=== PATIENT | female | born 1940 | race Caucasian/White ===

== ENCOUNTER 2018-04-13 12:30 | Outpatient (CLI) | payer MEDICARE, OTHER ==
[~2018-04-13 12:30] MED LIST: Gadobenate Dimeglumine 529 MG/1 ML (20ML VIAL) ONE
--- NOTE | 2018-04-13 15:30 | MRI ---
MRI OF THE PELVIS WITH AND WITHOUT IV CONTRAST: Date: 04/13/18 INDICATION: 77-year-old female with history of right-sided pelvic pain, diverticulitis, and ovarian abscess. The patient reportedly has been having right-sided pelvic pain on and off for 2 weeks. No history of prio r surgery or trauma. CONTRAST: 9 mL MultiHance. TECHNIQUE: Multiplanar, multisequence MR images were obtained of the pelvis with and without IV contrast. COMPARISON: CT abdomen and pelvis performed at [facility] on 12/12/16. FINDINGS: The uterus and adnexa have a normal appearance for age. No focal lesion is evidence within the adnexa . The visualized cervix is unremarkable. The bladder is normal appearing. There are a few scattered diverticula involving the visualized colon . No drainable fluid collection is evident. No pathologically enlarged lymph node is present. No definite acute osseous abnormality is demonstrated. No abnormal region of enhancement is demonstra anabela. IMPRESSION: 1. No acute abnormality seen. 2. Colonic diverticulosis. POS: [facility]
== END 2018-04-13 12:31 | disposition home or self-care (01) ==
LOC: BICMRI 12:30
PROVIDERS: ATTEND Family Medicine
DX: R10.2 Pelvic and perineal pain (principal); K57.30 Diverticulosis of large intestine without perforation or abscess without bleeding
CPT/HCPCS: 72197; 82565; A9579

== ENCOUNTER 2019-07-12 16:47 | Observation (INO) | payer MEDICARE ==
[~2019-07-12 16:47] MED LIST changes: -Gadobenate Dimeglumine 529 MG/1 ML (20ML VIAL) ONE; +Iopamidol 370 76% 100 ML VIAL ONE
[2019-07-12 17:24] LABS: #Eosinphils 0.1 thou/uL (0.0-0.7); #Lymphocytes 2.2 thou/uL (1.20-3.40); #Neutrophils 7.8 thou/uL (1.40-6.50); %Basophils 0.1 % (0.0-1.0); %Eosinophils 1.2 % (0.0-10.0); %Lymphocytes 19.3 % (21.0-51.0); %Monocytes 9.3 % (0.0-10.0); %Neutrophils 70.1 % (42.0-75.0); Hemoglobin 14.8 g/dL (12.0-16.0); Mean Corpuscular HGB CONC 33.8 g/dL (32.0-36.0); Mean Corpuscular Hemoglobin 29.5 pg (27.0-31.0); Mean Corpuscular Volume 87.2 fL (78.0-98.0); Mean Platelet Volume 7.7 fL (7.4-10.4); Platelet Count 313 thou/uL (130-400); RBC Distribution Width 12.7 % (11.5-14.5); White Blood Cell (WBC) Count 11.2 thou/uL (4.8-10.8)
[2019-07-12 17:50] LABS: ALT (SGPT) 8 U/L (8-55); AST (SGOT) 18 U/L (5-34); Albumin 3.8 g/dL (3.4-4.8); Alkaline Phosphatase 60 U/L (40-110); Anion Gap 15 mmol/L (10-20); BUN (Urea Nitrogen) 12 mg/dL (9.8-20.1); Bilirubin, Total 1.7 mg/dL (0.2-1.2); Calc. Creatinine Clearance 0 mL/min (70-130); Calcium 9.3 mg/dL (7.8-10.44); Carbon Dioxide 24 mmol/L (23-31); Chloride 104 mmol/L (98-107); Estimated GFR-MDRD 68; Globulin 3.7 g/dL (2.4-3.5); Glucose 109 mg/dL (83-110); Lipase 14 U/L (8-78); Potassium 4.7 mmol/L (3.5-5.1); Protein, Total 7.5 g/dL (6.0-8.3); Sodium 138 mmol/L (136-145)
--- NOTE | 2019-07-12 17:56 | RAD ---
PORTABLE CHEST: 07/12/19 PROVIDED CLINICAL HISTORY: Chest pain. Cardiac and mediastinal silhouette is within normal limits. No focal consolidation, pleural fluid or pneumothorax apparent. Vascular calcifications involves the aortic arch. IMPRESSION: No evidence for an acute cardiopulmonary process. POS: [facility]
--- NOTE | 2019-07-12 18:30 | CT ---
CT arteriogram chest with IV contrast and 3-D imaging HISTORY: Chest pain. Dyspnea. FINDINGS: Partially occlusive cylindrical filling defects are present within pulmonary arteries to th e left lower lobe posterior and lateral basilar segments and the right lower lobe medial and posterior basilar segments. Associated parenchymal atelectasis, left greater than right. Small amount of left pleural fluid. Good flow into the thoracic aorta with normal branching of the great vessels. Small amount of arteria l calcification. No evidence of pneumothorax. IMPRESSION : Bilateral lower lobe pulmonary emboli. Overall mild clot burden. Small left pleural effusion. Findings were called to Dr. Louie in the emergency department at 1823 hours. Code CR.
[2019-07-12] MEDS ORDERED: Enoxaparin Sodium 100 MG/ML SYRINGE ONE (19:17)
[2019-07-12 20:51] LABS: Troponin I Less than 0.010 ng/mL (< 0.028)
[2019-07-12] MEDS ORDERED: Acetaminophen 325 MG TAB PO PRN (21:26)
--- NOTE | 2019-07-12 21:40 | PDOC.HHP ---
Hospitalist HPI - History of Present Illness Chest pain, SOB History of Present Illness: PCP: June The patient is a 78/F with PMH significant for HTN that presents to ER for above complaint. The patient reports developing chest pain yesterday morning, located left chest, under breast, describes as intermittent aching, states "I thought I strained a muscle". Then this afternoon, the pain intensified, became constant, with associated sob, exacerbated with exertion and deep breathing. Denies heart palpitations and light headedness. Denies cough or wheezing. Reports some mild swelling to lower extremities. Denies history of DVT/PE, no recent surgeries, no hormone therapy, no history of Cancer or recent weight loss. For this reason, she had her ex drive her to the ER. ED Course: EKG ST, no ST elevations Trop negative CXR negative CTA chest + bialteral lower lobe emboli Given LMWH 1mg/kg Hospitalist ROS - Review of Systems Constitutional: denies: fever, chills, sweats, weakness, malaise, other Eyes: denies: pain, vision change, conjunctivae inflammation, eyelid inflammation, redness, other ENT: denies: ear pain, ear discharge, nose pain, nose discharge, nose congestion , mouth pain, mouth swelling, throat pain, throat swelling, other Respiratory: reports: shortness of breath, SOB with excertion, pleuritic pain. denies: cough, dry, hemoptysis, sputum, wheezing Cardiovascular: reports: chest pain, edema. denies: palpitations, orthopnea, paroxysmal noc. dyspnea, light headedness Gastrointestinal: denies: nausea, vomiting, abdominal pain, diarrhea, constipation, melena, hematochezia, other Genitourinary: denies: dysuria, frequency, incontinence, hematuria, retention, other Musculoskeletal: denies: neck pain, shoulder pain, arm pain, back pain, hand pain, leg pain, foot pain, other Neurological: denies: weakness, numbness, incoordination, change in speech, confusion, seizures, other Hospitalist History - Past Medical History Source: patient Cardiac: reports: HTN - Past Surgical History Past Surgical History: reports: Other (Removal of benign duodenal tumor) - Family History Family History: reports: hypertension Other Family History: Non contributory for PE/DVT - Social History Smoking Status: Never smoker Alcohol: reports: Occassional Drugs: reports: none Living Situation: Alone 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 in [place], 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 Activity level: independent ambulation - Exam General Appearance: NAD, awake alert Eye: anicteric sclera ENT: normocephalic atraumatic Neck: supple, no JVD Heart: RRR, no gallops, no rubs, normal peripheral pulses, II/IV Respiratory: CTAB, no wheezes, no rales, no ronchi, no tachypnea Gastrointestinal: soft, non-tender, non-distended, normal bowel sounds, no guarding, no rigidity Extremities: no cyanosis Extremities - other findings: trace edema BLEs Skin: no rashes Neurological: no focal deficits Musculoskeletal: normal tone, normal strength Psychiatric: normal affect, A&O x 3 Hospitalist Results - Labs Result Diagrams: 07/12/19 17:11 07/12/19 17:11 Lab results: WBC 11.2 thou/uL (4.8-10.8) H 07/12/19 17:11 Hgb 14.8 g/dL (12.0-16.0) 07/12/19 17:11 Hct 43.6 % (36.0-47.0) 07/12/19 17:11 MCV 87.2 fL (78.0-98.0) 07/12/19 17:11 Plt Count 313 thou/uL (130-400) 07/12/19 17:11 Neutrophils % 70.1 % (42.0-75.0) 07/12/19 17:11 Sodium 138 mmol/L (136-145) 07/12/19 17:11 Potassium 4.7 mmol/L (3.5-5.1) 07/12/19 17:11 Chloride 104 mmol/L (98-107) 07/12/19 17:11 Carbon Dioxide 24 mmol/L (23-31) 07/12/19 17:11 BUN 12 mg/dL (9.8-20.1) 07/12/19 17:11 Creatinine 0.82 mg/dL (0.6-1.1) 07/12/19 17:11 Glucose 109 mg/dL (83-110) 07/12/19 17:11 Calcium 9.3 mg/dL (7.8-10.44) 07/12/19 17:11 Total Bilirubin 1.7 mg/dL (0.2-1.2) H 07/12/19 17:11 AST 18 U/L (5-34) 07/12/19 17:11 ALT 8 U/L (8-55) 07/12/19 17:11 Alkaline Phosphatase 60 U/L (40-110) 07/12/19 17:11 Troponin I Less than 0.010 ng/mL (< 0.028) 07/12/19 20:11 Serum Total Protein 7.5 g/dL (6.0-8.3) 07/12/19 17:11 Albumin 3.8 g/dL (3.4-4.8) 07/12/19 17:11 Lipase 14 U/L (8-78) 07/12/19 17:11 - EKG Interpretation EKG: NSR - Radiology Interpretation CT scan - chest Status: report reviewed by me Chest x-ray Status: report reviewed by me Hospitalist H&P A/P - Problem (1) Bilateral pulmonary embolism Code(s): I26.99 - OTHER PULMONARY EMBOLISM WITHOUT ACUTE COR PULMONALE Status : Acute Assessment and Plan: Admit to telemetry, observation status Expected length of stay less than 2 midnights Hemodynamically stable PESI score 76, low risk Received LMWH 1mg/kg in ER at 1914 Will transition to Eliquis 10mg BID in am Order venous US Trend trop (2) Chest pain Code(s): R07.9 - CHEST PAIN, UNSPECIFIED Status: Acute Assessment and Plan: Currently resolved, NSR on monitor, EKG no ST elevations or Twave inversions Trops x 2 negative Likely secondary to bilateral pulmonary embolism Received LMWH 1mg/kg in ER Will trend troponins Check TSH and mag level (3) Elevated bilirubin Code(s): R17 - UNSPECIFIED JAUNDICE Status: Acute Assessment and Plan: Mildly elevated at 1.7 Asymptomatic AST, ALT and ALP WNL Will recheck CMP in am (4) HTN (hypertension) Code(s): I10 - ESSENTIAL (PRIMARY) HYPERTENSION Status: Chronic Assessment and Plan: VSS Will restart patient home med: lisinopril 10mg po q am - Plan Plan: Consult walking program Full Code STEPHEN Guerra at [phone] Santillan
[2019-07-12] MEDS ORDERED: Magnesium 2 GM/50 ML 2 GM in Premix Bag 1 BAG IVPB SCH (22:30)
[2019-07-12 22:58] VITALS: BMI 33.0
[2019-07-12 23:32] LABS: Troponin I 0.014 ng/mL (< 0.028)
--- NOTE | 2019-07-13 00:02 | ULT ---
Venous duplex sonogram bilateral lower extremity HISTORY: Bilateral leg pain and edema. FINDINGS: Each common femoral vein and greater saphenous junction were evaluated along with each femo ral, deep femoral, popliteal, and posterior tibial vein. Good color and spectral Doppler flow and compression. At the right popliteal fossa, a lobular, elongated well-circumscribed fluid collection measures up to 4.5 cm length by 1.1 cm depth by 3.0 cm width. IMPRESSION : No sonographic evidence of DVT within either lower extremity. 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
[2019-07-13 05:38] LABS: #Basophils 0.1 thou/uL (0.0-0.2); #Eosinphils 0.1 thou/uL (0.0-0.7); #Lymphocytes 2.1 thou/uL (1.20-3.40); #Monocytes 1.1 thou/uL (0.11-0.59); #Neutrophils 7.7 thou/uL (1.40-6.50); %Basophils 0.6 % (0.0-1.0); %Eosinophils 0.7 % (0.0-10.0); %Lymphocytes 18.6 % (21.0-51.0); %Monocytes 10.2 % (0.0-10.0); %Neutrophils 69.8 % (42.0-75.0); Hemoglobin 14.3 g/dL (12.0-16.0); Mean Corpuscular HGB CONC 34.3 g/dL (32.0-36.0); Mean Corpuscular Volume 87.7 fL (78.0-98.0); Mean Platelet Volume 7.4 fL (7.4-10.4); Platelet Count 281 thou/uL (130-400); RBC Distribution Width 12.3 % (11.5-14.5); Red Blood Cell (RBC) Count 4.76 mill/uL (4.20-5.40)
[2019-07-13 06:01] LABS: ALT (SGPT) Less than 7 U/L (8-55); AST (SGOT) 10 U/L (5-34); Albumin 3.6 g/dL (3.4-4.8); Alkaline Phosphatase 55 U/L (40-110); Anion Gap 11 mmol/L (10-20); BUN (Urea Nitrogen) 10 mg/dL (9.8-20.1); Bilirubin, Total 2.3 mg/dL (0.2-1.2); Calc. Creatinine Clearance 87 mL/min (70-130); Calcium 9.1 mg/dL (7.8-10.44); Carbon Dioxide 28 mmol/L (23-31); Chloride 104 mmol/L (98-107); Estimated GFR-MDRD 70; Glucose 107 mg/dL (83-110); Magnesium 2.2 mg/dL (1.6-2.6); Potassium 4.1 mmol/L (3.5-5.1); Protein, Total 6.6 g/dL (6.0-8.3); Sodium 139 mmol/L (136-145)
[2019-07-13] MEDS ORDERED: Lisinopril 10 MG TAB PO SCH (09:00)
[2019-07-13] MEDS ORDERED: Apixaban 5 MG TAB PO SCH (09:00)
[2019-07-13] MEDS ORDERED: LISINOPRIL 10 MG PO SCH (09:00)
[2019-07-13 11:35] VITALS: BP 133/82; TEMP 98
--- NOTE | 2019-07-14 02:14 | DIS ---
DATE OF ADMISSION: 07/12/2019 DATE OF DISCHARGE: 07/13/2019 DISCHARGE DIAGNOSES: 1. Bilateral pulmonary embolism 2. Chest pain 3. Elevated bilirubin 4. Leukocytosis 5. Popliteal cyst and Cortes cyst. CONSULTATIONS: None. PROCEDURES PERFORMED: None. BRIEF HISTORY OF PRESENT ILLNESS: This is a 78-year-old female with a past medical of hypertension, who had presented to the emergency room with pain under her left breast that started all of a sudden. The patient stated that the pain was constant and became worse, so she came to the ER. She denied shortness of breath, palpitations, or diaphoresis. The patient does state that she is relatively sedentary due to the medrano virus pandemic and does not ambulate much. She denies recent travel history. HOSPITAL COURSE: Chest pain likely secondary to bilateral pulmonary embolism: The patient did have a chest x-ray on the , which showed no acute disease. CTA of her thorax showed bilateral lower lobe pulmonary emboli with a small left pleural effusion. She had an EKG done, which showed sinus tachycardia. She had 3 sets of troponins, which were negative. She was initially started on Lovenox for her PE and was transitioned to Eliquis the following day. Her chest pain completely resolved and she did not have any oxygen requirements on the day of discharge. She ambulated in the hallway without significant shortness of breath. She will be discharged with Eliquis 10 mg twice a day for 7 days and 5 mg twice a day after. The patient did bring up a concern of having an ulcer in the past in her stomach from which she bled from, however this was back in 1987. I told her to take protonix as ulcer prophylaxis. I did state that she may have a slightly increased risk of bleeding , however she has had no abdominal pain in the past twenty years so ulcer likely has healed. Leukocytosis: The patient had a white count of 11.2 on the , which came down to 11.0. She was afebrile. Her chest x-ray showed no acute disease. She does not have any symptoms of UTI. This can be repeated as an outpatient for monitoring a resolution. Elevated bilirubin: The patient has had a bilirubin of 1.7, which increased to 2.3. Her LFTs were normal. She has had no abdominal pain, nausea, vomiting, and no fevers. She did not have any signs of jaundice. She should have this followed up as an outpatient with her PCP and have this repeated. DISCHARGE PHYSICAL EXAMINATION: VITAL SIGNS: Temperature 98, heart rate 75, respiratory rate 20, O2 saturation 94% on room air, and blood pressure 133/82. GENERAL: The patient is alert, awake, oriented x3. She is obese. CVS: Regular rate and rhythm with no murmurs, rubs, or gallops. LUNGS: Clear to auscultation bilaterally. ABDOMEN: Positive bowel sounds, soft, nontender, and nondistended. EXTREMITIES: No edema. PERTINENT LABORATORY DATA: CBC 07/12: White blood cell count 11.0. Rest of CBC unremarkable. BMP 07/12: Normal. LFTs 07/12: Bilirubin 2.3, AST 10, ALT less than 7, alkaline phosphatase 55. Troponin I: Less than 0.010 x2 and 0.014. TSH: 1.0721. IMAGING: Chest x-ray 07/11: No acute disease. CT thorax 07/11: Bilateral lower lobe pulmonary emboli with a small amount of left pleural fluid. Overall mild clot burden. Venogram 07/11: Shows right popliteal fossa cyst. 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 DISCHARGE CONDITION: Stable. ACTIVITY: As tolerated. DIET: Heart healthy diet. DISCHARGE MEDICATIONS: 1. Eliquis 10 mg p.o. b.i.d. for 7 days and 5 mg p.o. b.i.d. after. 2. Protonix 40 mg p.o. daily. 3. Lisinopril 10 mg p.o. daily. DISCHARGE INSTRUCTIONS: The patient should follow up with her PCP in a week to have her CBC repeated and her bilirubin number repeated. She is advised to come back to the hospital if she has any fever, abdominal pain, or jaundice. Job ID: [id number] [facility]
== END 2019-07-13 14:47 | disposition home or self-care (01) ==
LOC: ERS 16:47 → 2SE 20:02
PROVIDERS: ADMIT Emergency Medicine; ATTEND Emergency Medicine
DX: I26.99 Other pulmonary embolism without acute cor pulmonale (principal); J90 Pleural effusion, not elsewhere classified; R17 Unspecified jaundice; D72.829 Elevated white blood cell count, unspecified; M71.20 Synovial cyst of popliteal space [Baker], unspecified knee; I10 Essential (primary) hypertension; Z79.899 Other long term (current) drug therapy
CPT/HCPCS: 71045; 71275; 80053; 83690; 83735 ×2; 84484 ×2; 85025; 93005; 93970; 96365; 96372; 97139; 99285; G0378 ×3; J1650; J3475; Q9967; 36415; 84443

== ENCOUNTER 2020-10-04 09:02 | Outpatient (CLI) | payer MEDICARE | END 2020-10-04 09:03 | disposition home or self-care (01) | LOC: BICULT 09:02 | PROVIDERS: ATTEND Internal Medicine | DX: E80.6 Other disorders of bilirubin metabolism (principal); K80.20 Calculus of gallbladder without cholecystitis without obstruction; N28.1 Cyst of kidney, acquired | CPT/HCPCS: 76705 ==

== ENCOUNTER 2022-08-05 13:15 | Observation (INO) | payer OTHER, MEDICARE ==
[2022-08-05 15:14] LABS: #Basophils 0.1 thou/uL (0.0-0.2); #Eosinphils 0.2 thou/uL (0.0-0.7); #Monocytes 0.6 thou/uL (0.11-0.59); #Neutrophils 5.9 thou/uL (1.40-6.50); %Basophils 0.9 % (0.0-1.0); %Monocytes 7.3 % (0.0-10.0); %Neutrophils 68.5 % (42.0-75.0); Hemoglobin 15.2 g/dL (12.0-16.0); Mean Corpuscular Hemoglobin 28.3 pg (27.0-31.0); Mean Corpuscular Volume 85.7 fl (78.0-98.0); Mean Platelet Volume 9.2 fL (7.4-10.4); Platelet Count 290 10x3/uL (130-400); RBC Distribution Width 12.9 % (11.5-14.5); Red Blood Cell (RBC) Count 5.37 mill/uL (4.20-5.40); White Blood Cell (WBC) Count 8.6 10x3/uL (4.8-10.8)
[2022-08-05 15:35] LABS: ALT (SGPT) 11 U/L (8-55); AST (SGOT) 15 U/L (5-34); Albumin 4.1 g/dL (3.4-4.8); Alkaline Phosphatase 90 U/L (40-110); Anion Gap 13 mmol/L (10-20); BUN (Urea Nitrogen) 21 mg/dL (9.8-20.1); Bilirubin, Total 1.3 mg/dL (0.2-1.2); Calc. Creatinine Clearance 0 mL/min (70-130); Calcium 9.6 mg/dL (7.8-10.44); Carbon Dioxide 26 mmol/L (23-31); Chloride 107 mmol/L (98-107); Estimated GFR 54; Globulin 3.3 g/dL (2.4-3.5); Glucose 99 mg/dL (83-110); Potassium 4.9 mmol/L (3.5-5.1); Protein, Total 7.4 g/dL (5.8-8.1); Sodium 141 mmol/L (136-145)
[2022-08-05 15:36] LABS: Prothrombin Time 13.4 sec (12.0-14.7)
[2022-08-05 15:37] LABS: PTT 28.3 sec (22.9-36.1)
[2022-08-05] MEDS ORDERED: Ondansetron PF 4 MG/2 ML Vial IVP PRN (16:02)
[2022-08-05] MEDS ORDERED: Ipratropium/Albuterol 3 ML NEB NEB PRN (16:02)
[2022-08-05] MEDS ORDERED: ADMIXTURE FEE IV SCH (16:15)
[2022-08-05] MEDS ORDERED: HUMAN PROTHROMBIN COMPLX IV SCH (16:15)
[2022-08-05] MEDS ORDERED: Acetaminophen 325 MG TAB PO SCH (16:30)
[2022-08-05] MEDS ORDERED: hydrALAZINE 20 MG/ML VIAL SLOW IVP PRN (18:20)
[2022-08-05] MEDS: Famotidine/PF 20 mg/2ml Vial SLOW IVP SCH (23:01)
[2022-08-05 23:10] VITALS: BMI 36.6
[2022-08-06] MEDS: Acetaminophen 325 MG TAB PO SCH ×3 (00:39→13:36)
[2022-08-06 05:14] LABS: #Basophils 0.1 thou/uL (0.0-0.2); #Eosinphils 0.4 thou/uL (0.0-0.7); #Monocytes 0.6 thou/uL (0.11-0.59); #Neutrophils 3.5 thou/uL (1.40-6.50); %Basophils 1.2 % (0.0-1.0); %Eosinophils 5.5 % (0.0-10.0); %Lymphocytes 28.2 % (21.0-51.0); %Monocytes 9.8 % (0.0-10.0); %Neutrophils 54.8 % (42.0-75.0); Mean Corpuscular HGB CONC 32.5 g/dL (32.0-36.0); Mean Corpuscular Hemoglobin 27.5 pg (27.0-31.0); Mean Corpuscular Volume 84.6 fl (78.0-98.0); Mean Platelet Volume 9.3 fL (7.4-10.4); Platelet Count 239 10x3/uL (130-400); RBC Distribution Width 12.8 % (11.5-14.5); Red Blood Cell (RBC) Count 4.73 mill/uL (4.20-5.40); White Blood Cell (WBC) Count 6.4 10x3/uL (4.8-10.8)
[2022-08-06 05:34] LABS: PTT 28.3 sec (22.9-36.1); Prothrombin Time 13.6 sec (12.0-14.7)
[2022-08-06 05:39] LABS: Anion Gap 11 mmol/L (10-20); BUN (Urea Nitrogen) 20 mg/dL (9.8-20.1); Calc. Creatinine Clearance 80 mL/min (70-130); Calcium 8.5 mg/dL (7.8-10.44); Carbon Dioxide 23 mmol/L (23-31); Chloride 108 mmol/L (98-107); Estimated GFR 63; Glucose 90 mg/dL (83-110); Sodium 138 mmol/L (136-145)
[2022-08-06] MEDS: Famotidine/PF 20 mg/2ml Vial SLOW IVP SCH (08:22)
[2022-08-06] MEDS ORDERED: Lisinopril 10 MG TAB PO SCH (09:00)
[2022-08-06 11:54] VITALS: TEMP 97.1
[2022-08-06 12:13] VITALS: BP 142/84
== END 2022-08-06 14:14 | disposition home or self-care (01) ==
LOC: ERS 13:15 → NEURO 15:39
PROVIDERS: ADMIT Surgery; ATTEND Surgery
DX: S06.6X0A Traumatic subarachnoid hemorrhage without loss of consciousness, initial encounter (principal); I10 Essential (primary) hypertension; Z86.711 Personal history of pulmonary embolism; Z79.01 Long term (current) use of anticoagulants; Z79.899 Other long term (current) drug therapy; V49.40XA Driver injured in collision with unspecified motor vehicles in traffic accident, initial encounter; Y92.414 Local residential or business street as the place of occurrence of the external cause
CPT/HCPCS: 70450 ×2; 72125; 80048; 80053; 85025 ×2; 85610 ×2; 85730 ×2; G0378 ×3; 36415